=== PATIENT | male | born 1995 | race Hispanic/Latino ===

== ENCOUNTER 2022-08-13 15:21 | Emergency (ER) | payer SELFPAY ==
--- NOTE | 2022-08-13 15:50 | ER ---
Nurse's Notes [facility] Name: Pascual Jon Jr Age: 27 yrs Sex: Male : 1995 Arrival Date: 08/13/2022 Time: 15:26 Bed Waiting Private MD: Diagnosis: Encounter for screening, unspecified Presentation: 08/13 15:34 Chief complaint: Patient states: The police dropped me off as a courtesy ride. I am 9 trying to get home because I am not from here. I just got discharged from [facility]. Coronavirus screen: At this time, the client does not indicate any symptoms associated with coronavirus-19. Ebola Screen: No symptoms or risks identified at this time. Initial Sepsis Screen: Does the patient meet any 2 criteria? No. Patient's initial sepsis screen is negative. Does the patient have a suspected source of infection? No. Patient's initial sepsis screen is negative. Risk Assessment: Do you want to hurt yourself or someone else? Patient reports no desire to harm self or others. Onset of symptoms was August 13, 2022. 15:34 Method Of Arrival: Ambulatory [facility] 15:34 Acuity: TIMUR 4 bm7 Triage Assessment: 15:38 General: Appears in no apparent distress. comfortable, Behavior is calm, cooperative, bm7 appropriate for age. Pain: Denies pain. EENT: No deficits noted. No signs and/or symptoms were reported regarding the EENT system. Neuro: No deficits noted. Cardiovascular: No deficits noted. Respiratory: No deficits noted. GI: No deficits noted. No signs and/or symptoms were reported involving the gastrointestinal system. : No deficits noted. No signs and/or symptoms were reported regarding the genitourinary system. Derm: No deficits noted. No signs and/or symptoms reported regarding the dermatologic system. Musculoskeletal: No deficits noted. No signs and/or symptoms reported regarding the musculoskeletal system. Historical: - Allergies: 15:38 PENICILLINS; bm7 - Home Meds: 15:38 Abilify 5 mg oral tab 1 tab once daily [Active]; bm7 - PMHx: 15:38 Depressive disorder; bm7 - PSHx: 15:38 None; bm7 - Immunization history:: Adult Immunizations up to date. - Social history:: Smoking status: Patient denies any tobacco usage or history of. Vital Signs: 15:33 BP 147 / 91; Pulse 90; Resp 16; Temp 98.0(TE); Pulse Ox 98% on R/A; Weight 72.57 kg bm7 (R); Height 5 ft. 8 in. (172.72 cm); Pain 0/10; 15:33 Body Mass Index 24.33 (72.57 kg, 172.72 cm) bm7 ED Course: 15:26 Patient arrived in ED. as 15:33 Arm band placed on right wrist. bm7 15:34 Ilan Ac PA is PHCP. sin 15:34 Cynthia Carrera MD is Attending Physician. [facility] 15:38 Triage completed. bm7 15:44 PHCP role handed off by Ilan Ac PA snw 15:44 Arelis Carr FNP-C is PHCP. snw Administered Medications: No medications were administered Outcome: 15:49 Discharge ordered by MD. snw 15:50 Patient left the ED. bm7 Signatures: Arelis Carr FNP-C FNP-Csnw Ilan Ac PA PA jmm Martinez, Amelia as McCarthy, Brittany, RN RN bm7 Corrections: (The following items were deleted from the chart) 15:39 15:38 Allergies: No Known Allergies; bm7 bm7
--- NOTE | 2022-08-13 15:50 | EDPHYS ---
Physician Documentation [facility] Name: Pascual Jon Jr Age: 27 yrs Sex: Male : 1995 Arrival Date: 08/13/2022 Time: 15:26 Bed Waiting Private MD: ED Physician Cynthia Carrera Historical: - Allergies: 08/13 15:38 PENICILLINS; bm7 - Home Meds: 15:38 Abilify 5 mg oral tab 1 tab once daily [Active]; bm7 - PMHx: 15:38 Depressive disorder; bm7 - PSHx: 15:38 None; bm7 - Immunization history:: Adult Immunizations up to date. - Social history:: Smoking status: Patient denies any tobacco usage or history of. Exam: 15:44 Constitutional: This is a well developed, well nourished patient who is awake, alert, snw and in no acute distress. Head/Face: Normocephalic, atraumatic. Eyes: Pupils equal round and reactive to light, extra-ocular motions intact. Lids and lashes normal. Conjunctiva and sclera are non-icteric and not injected. Cornea within normal limits. Periorbital areas with no swelling, redness, or edema. ENT: Nares patent. No nasal discharge, no septal abnormalities noted. Tympanic membranes are normal and external auditory canals are clear. Oropharynx with no redness, swelling, or masses, exudates, or evidence of obstruction, uvula midline. Mucous membranes moist. Neck: Trachea midline, no thyromegaly or masses palpated, and no cervical lymphadenopathy. Supple, full range of motion without nuchal rigidity, or vertebral point tenderness. No Meningismus. Chest/axilla: Normal chest wall appearance and motion. Nontender with no deformity. No lesions are appreciated. Cardiovascular: Regular rate and rhythm with a normal S1 and S2. No gallops, murmurs, or rubs. Normal PMI, no JVD. No pulse deficits. Respiratory: Lungs have equal breath sounds bilaterally, clear to auscultation and percussion. No rales, rhonchi or wheezes noted. No increased work of breathing, no retractions or nasal flaring. Abdomen/GI: Soft, non-tender, with normal bowel sounds. No distension or tympany. No guarding or rebound. No evidence of tenderness throughout. Back: No spinal tenderness. No costovertebral tenderness. Full range of motion. Skin: Warm, dry with normal turgor. Normal color with no rashes, no lesions, and no evidence of cellulitis. MS/ Extremity: Pulses equal, no cyanosis. Neurovascular intact. Full, normal range of motion. Neuro: Awake and alert, GCS 15, oriented to person, place, time, and situation. Cranial nerves II-XII grossly intact. Motor strength 5/5 in all extremities. Sensory grossly intact. Cerebellar exam normal. Normal gait. 15:44 Psych: Behavior/mood is pleasant, cooperative, Affect is calm, Oriented to person, place, time, Patient has no thoughts/intents to harm self or others. Vital Signs: 15:33 BP 147 / 91; Pulse 90; Resp 16; Temp 98.0(TE); Pulse Ox 98% on R/A; Weight 72.57 kg bm7 (R); Height 5 ft. 8 in. (172.72 cm); Pain 0/10; 15:33 Body Mass Index 24.33 (72.57 kg, 172.72 cm) bm7 MDM: 15:49 Patient medically screened. snw Administered Medications: No medications were administered Disposition: 17:54 STAFF ATTESTATION STATEMENT: I was immediately available onsite in the emergency sd2 department for consultation in the care of this patient. I did not see or examine this patient. Cynthia Carrera MD. Disposition Summary: 08/13/22 15:49 Discharge Ordered Location: Home snw Condition: Stable snw Diagnosis - Encounter for screening, unspecified snw Followup: snw - With: Emergency Department - When: As needed - Reason: Followup: snw - With: Private Physician - When: 1 - 2 days - Reason: Recheck today's complaints, Continuance of care, Re-evaluation by your physician Discharge Instructions: - Discharge Summary Sheet snw - Personal Safety Information, Adult snw - Safe Sex snw Forms: - Medication Reconciliation Form snw - Thank You Letter snw - Antibiotic Education snw - Prescription Opioid Use snw Signatures: Arelis Carr FNP-C [employer]-Csnw Shasha Gómez RN RN bm7 Cynthia Carrera MD MD sd2 Corrections: (The following items were deleted from the chart) 15:39 15:38 Allergies: No Known Allergies; bm7 bm7
[2022-08-13 16:25] VITALS: BP 147/91; TEMP 98; O2SAT 98
== END 2022-08-13 15:50 | disposition home or self-care (01) ==
LOC: ER 15:21
DX: Z13.9 Encounter for screening, unspecified (principal); Z88.0 Allergy status to penicillin; F32.A Depression, unspecified
CPT/HCPCS: 99281